=== PATIENT | male | born 1990 | race Caucasian/White ===

== ENCOUNTER 2020-07-12 09:27 | Emergency (ER) | payer SELFPAY ==
[2020-07-12 09:32] VITALS: BP 133/76
--- NOTE | 2020-07-12 10:17 | ER Document Report ---
ED Medical Screen (RME) - General Chief Complaint: Eye Pain Stated Complaint: EYE PAIN Time Seen by Provider: 07/12/20 10:12 Mode of Arrival: Ambulatory Information source: Patient Notes: 29-year-old male patient presenting to the emergency department with left eye redness, swelling, drainage, pain. Patient reports symptoms started about a week ago. He states he thought he had pinkeye, went to an emergency department and was put on some type of antibiotic drops which she does not recall the name of. He reports using the drops as prescribed however the symptoms are worsening. Patient will obtain his bottle of eyedrops so that we know what he is taking. Left eye appears watery, injected. I have greeted and performed a rapid initial assessment of this patient. A comprehensive ED assessment and evaluation of the patient, analysis of test results and completion of the medical decision making process will be conducted by additional ED providers. I have specifically instructed the patient or family members with the patient to immediately return to any nursing staff should anything change in the patient's condition or with their chief complaint. TRAVEL OUTSIDE OF THE [place] IN LAST 30 DAYS: No - Related Data Allergies/Adverse Reactions: No Known Allergies Allergy (Verified 07/12/20 10:12) Past Medical History Psychiatric Medical History: Reports: Hx Attention Deficit Hyperactivity Disorder, Hx Depression - Immunizations Hx Diphtheria, Pertussis, Tetanus Vaccination: Yes Physical Exam - Vital signs Vitals: Temp Pulse Resp BP Pulse Ox 98.3 F 81 16 133/76 H 99 07/12/20 09:31 07/12/20 09:31 07/12/20 09:31 07/12/20 09:31 07/12/20 09:31 Course - Vital Signs Vital signs: Temp Pulse Resp BP Pulse Ox 98.3 F 81 16 133/76 H 99 07/12/20 09:31 07/12/20 09:31 07/12/20 09:31 07/12/20 09:31 07/12/20 09:31
[2020-07-12] MEDS ORDERED: TETRACAINE HCL 0.5% OPH SOLN 4 ML OS ONE (10:39)
--- NOTE | 2020-07-12 13:39 | ER Document Report ---
Entered by SMITH METCALF SCRIBE 07/12/20 1217 Acting as scribe for:HANH MAR MD ED Eye Complaint - General Chief Complaint: Redness of Eye Stated Complaint: EYE PAIN Time Seen by Provider: 07/12/20 10:12 Primary Care Provider: ROSENDA,CHATA [Primary Care Provider] - Follow up as needed Mode of Arrival: Ambulatory Information source: Patient Notes: This 29 year old male patient presents to the emergency department today with complaints of left eye redness, swelling, and drainage for the past x1 week. Patient states he visited an ED x1 week ago and told it was pink eye. Patient states he was prescribed eye drops, which have not provided relief. Patient states he frequently gets pink eye, with this being the second time this year. Patient states it is uncomfortable to open and close his left eye, and reports blurry vision. TRAVEL OUTSIDE OF THE [place] IN LAST 30 DAYS: No - Related Data Allergies/Adverse Reactions: No Known Allergies Allergy (Verified 07/12/20 10:12) Home Medications: eye drops Past Medical History - General Information source: Patient - Social History Smoking Status: Unknown if Ever Smoked Chew tobacco use (# tins/day): No Frequency of alcohol use: None Drug Abuse: Marijuana Family History: Reviewed & Not Pertinent Patient has homicidal ideation: No Psychiatric Medical History: Reports: Hx Attention Deficit Hyperactivity Disorder, Hx Depression - Immunizations Hx Diphtheria, Pertussis, Tetanus Vaccination: Yes Review of Systems - Review of Systems Constitutional: No symptoms reported EENT: See HPI, Eye pain, Eye discharge, Blurred vision, Other - L eye redness Cardiovascular: No symptoms reported Respiratory: No symptoms reported Gastrointestinal: No symptoms reported Genitourinary: No symptoms reported Male Genitourinary: No symptoms reported Musculoskeletal: No symptoms reported Skin: No symptoms reported Hematologic/Lymphatic: No symptoms reported Neurological/Psychological: No symptoms reported -: Yes All other systems reviewed and negative Physical Exam - Vital signs Vitals: Temp Pulse Resp BP Pulse Ox 98.3 F 81 16 133/76 H 99 07/12/20 09:31 07/12/20 09:31 07/12/20 09:31 07/12/20 09:31 07/12/20 09:31 - General General appearance: Appears well, Alert - HEENT Head: Normocephalic, Atraumatic Conjunctiva: Purulent discharge - minimal Cornea: No: Corneal abrasion, Embedded foreign body, Superficial foreign body Extraocular movements intact: Yes Eyelashes: Normal Pupils: PERRL Visual acuity- Right eye: 20/20 Visual acuity- Left eye: 20/70 Anterior chamber: Normal Fundascopic: Normal. No: Retinal detachment, Retinal hemorrhage Notes: Edema of the upper and lower left eyelids. - Respiratory Respiratory status: No respiratory distress Chest status: Nontender Breath sounds: Normal Chest palpation: Normal - Cardiovascular Rhythm: Regular Heart sounds: Normal auscultation Murmur: No - Abdominal Inspection: Normal Distension: No distension Bowel sounds: Normal Tenderness: Nontender - Extremities General upper extremity: Normal inspection, Normal ROM General lower extremity: Normal inspection, Normal ROM. No: Edema - Neurological Neuro grossly intact: Yes Cognition: Normal Orientation: AAOx4 Wol[place] Coma Scale Eye Opening: Spontaneous Tan Coma Scale Verbal: Oriented [place] Coma Scale Motor: Obeys Commands Wol[place] Coma Scale Total: 15 Speech: Normal Sensory: Normal - Psychological Associated symptoms: Normal affect, Normal mood - Skin Skin Temperature: Warm Skin Moisture: Dry Skin Color: Normal Course - Re-evaluation Re-evalutation: 07/12/20 13:32 Patient reports his left feels better at this time. Patient has had a fluorescein stain that did not show any evidence for corneal injury no foreign body noted. Pupils are equal round reactive to light extraocular muscles intact funduscopic exam no hemorrhage disc is within normal range. Patient had slit- lamp exam as well done by midlevel Manuel,. There was no internal injuries noted. Patient gave his best effort and was only 27 out of the left eye which is the eye with the extensive conjunctivitis. - Vital Signs Vital signs: Temp Pulse Resp BP Pulse Ox 98.3 F 81 16 133/76 H 99 07/12/20 10:12 07/12/20 09:31 07/12/20 09:31 07/12/20 09:31 07/12/20 09:31 Discharge - Discharge Clinical Impression: Acute conjunctivitis of left eye Condition: Stable Disposition: HOME, SELF-CARE Instructions: Conjunctivitis ([facility]), Eyedrop Use ([facility]) Prescriptions: Tobramycin Sulfate/Dexameth [Tobradex Oph Drops 2.5 Ml Bottle] 2 drop OS QID 7 Days #1 bottle Referrals: LOCALMD,NO [Primary Care Provider] - Follow up as needed JACK OSBORNE, [ACTIVE STAFF] - Follow up in 3-5 days I personally performed the services described in the documentation, reviewed and edited the documentation which was dictated to the scribe in my presence, and it accurately records my words and actions.
== END 2020-07-12 13:45 | disposition home or self-care (01) ==
LOC: ER 09:27
DX: H10.022 Other mucopurulent conjunctivitis, left eye (principal); F12.10 Cannabis abuse, uncomplicated
CPT/HCPCS: 99283; J3490